=== PATIENT | female | born 1990 | race Caucasian/White ===

== ENCOUNTER 2017-12-13 19:19 | Emergency (ER) | payer OTHER ==
[~2017-12-13] VITALS: Ht 162.6 cm; Wt 71.8 kg
[2017-12-13] MEDS ORDERED: MOTRIN600 MG PO (21:45)
[2017-12-13 22:06] VITALS: BP 134/92
== END 2017-12-13 22:06 | disposition home or self-care (01) ==
LOC: EME → EDBD 19:19 → EME 19:19
DX: S46.912A Strain of unspecified muscle, fascia and tendon at shoulder and upper arm level, left arm, initial encounter (principal); S01.01XA Laceration without foreign body of scalp, initial encounter; V49.40XA Driver injured in collision with unspecified motor vehicles in traffic accident, initial encounter; Y92.008 Other place in unspecified non-institutional (private) residence as the place of occurrence of the external cause; Z88.0 Allergy status to penicillin
CPT/HCPCS: 70450; 73030; 99281; 99284